=== PATIENT | male | born 1965 | race Two or more races ===

== ENCOUNTER 2019-03-20 09:59 | Emergency (ER) | payer OTHER ==
[~2019-03-20] VITALS: Ht 167.6 cm; Wt 93.9 kg
[2019-03-20 12:32] VITALS: BP 132/66
[2019-03-20] MEDS ORDERED: KETOROLAC TROMETH 60MG/2ML VIAL IM ONE (12:45)
== END 2019-03-20 13:05 | disposition home or self-care (01) ==
LOC: ER 10:07
DX: S39.012A Strain of muscle, fascia and tendon of lower back, initial encounter (principal); V49.9XXA Car occupant (driver) (passenger) injured in unspecified traffic accident, initial encounter; Y93.I9 Activity, other involving external motion; Y92.410 Unspecified street and highway as the place of occurrence of the external cause; Y99.8 Other external cause status
CPT/HCPCS: 72100; 96372; 99283; J1885